=== PATIENT | male | born 1965 | race Caucasian/White ===

== ENCOUNTER 2020-09-16 21:14 | Inpatient (IN) | payer OTHER, SELFPAY ==
[~2020-09-16 21:14] MED LIST: Iopamidol-370 76% 500 ML 1 ML ONE
[2020-09-16 22:00] LABS: #Lymphocytes 1.1 thou/uL (1.20-3.40); #Monocytes 0.7 thou/uL (0.11-0.59); %Eosinophils 0.3 % (0.0-10.0); %Lymphocytes 9.1 % (21.0-51.0); %Monocytes 6.3 % (0.0-10.0); %Neutrophils 84.4 % (42.0-75.0); Hemoglobin 16.1 g/dL (14.0-18.0); Mean Corpuscular HGB CONC 33.1 g/dL (32.0-36.0); Mean Corpuscular Hemoglobin 30.8 pg (27.0-31.0); Mean Corpuscular Volume 92.8 fL (78.0-98.0); Mean Platelet Volume 10.1 fL (7.4-10.4); Platelet Count 138 thou/uL (130-400); RBC Distribution Width 12.7 % (11.5-14.5); Red Blood Cell (RBC) Count 5.23 mill/uL (4.70-6.10); White Blood Cell (WBC) Count 11.8 thou/uL (4.8-10.8)
[2020-09-16 22:03] LABS: INR-International Normal Ratio 1.2; PTT 30.6 sec (22.9-36.1); Prothrombin Time 15.3 sec (12.0-14.7)
[2020-09-16 22:07] LABS: ALT (SGPT) 105 U/L (8-55); AST (SGOT) 55 U/L (5-34); Albumin 3.8 g/dL (3.5-5.0); Alkaline Phosphatase 48 U/L (40-110); Anion Gap 17 mmol/L (10-20); BUN (Urea Nitrogen) 16 mg/dL (8.4-25.7); Bilirubin, Total 1.4 mg/dL (0.2-1.2); CK (CPK) 223 U/L (30-200); Calc. Creatinine Clearance 0 mL/min (70-130); Calcium 8.2 mg/dL (7.8-10.44); Carbon Dioxide 17 mmol/L (22-29); Chloride 106 mmol/L (98-107); Globulin 1.8 g/dL (2.4-3.5); Glucose 122 mg/dL (70-105); Potassium 4.6 mmol/L (3.5-5.1); Protein, Total 5.6 g/dL (6.0-8.3); Sodium 135 mmol/L (136-145)
[2020-09-16 23:02] LABS: SARS-CoV-2 NAA Rapid Test Not Detected (NotDetected)
[2020-09-16 23:18] LABS: Acetaminophen Less than 6.0 mcg/mL (10.0-30.0); Alcohol Less than 10 mg/dL (Less than 10); Salicylate Less than 8.0 mg/dL (15.0-30.0)
[2020-09-16] MEDS ORDERED: Labetalol HCl 100 MG/20 ML VIAL SLOW IVP PRN (23:38)
[2020-09-16] MEDS ORDERED: hydrALAZINE 20 MG/ML VIAL SLOW IVP PRN (23:38)
[2020-09-16] MEDS ORDERED: Aspirin 300 MG Suppository ONE (23:40)
[2020-09-16] MEDS ORDERED: Digoxin 0.5 MG/2 ML AMP ONE (23:40)
[2020-09-16] MEDS ORDERED: Sodium Chloride 0.9% 1,000 ML IV SCH (23:45)
[2020-09-16] MEDS ORDERED: Ondansetron ODT 4 MG TAB PO PRN (23:46)
[2020-09-16] MEDS ORDERED: Ondansetron PF 4 MG/2 ML Vial IVP PRN (23:46)
[2020-09-16] MEDS ORDERED: Bisacodyl 5 MG TAB PO PRN (23:46)
[2020-09-16] MEDS ORDERED: Acetaminophen 650 MG Suppository PR PRN (23:46)
[2020-09-16] MEDS ORDERED: Adacel (T-DAP) 0.5 ML SYRINGE IM ONE (23:50)
[2020-09-17] MEDS ORDERED: Magnesium 2 GM/50 ML 2 GM in Premix Bag 1 BAG IVPB SCH (01:15)
[2020-09-17] MEDS: Sodium Chloride 0.9% 1,000 ML IV SCH ×3 (02:58→23:51)
[2020-09-17 05:05] LABS: #Lymphocytes 1.1 thou/uL (1.20-3.40); #Monocytes 0.9 thou/uL (0.11-0.59); #Neutrophils 13.3 thou/uL (1.40-6.50); %Basophils 0.1 % (0.0-1.0); %Eosinophils 0.1 % (0.0-10.0); %Lymphocytes 7.2 % (21.0-51.0); %Monocytes 5.8 % (0.0-10.0); %Neutrophils 86.8 % (42.0-75.0); Mean Corpuscular HGB CONC 33.5 g/dL (32.0-36.0); Mean Corpuscular Volume 92.5 fL (78.0-98.0); Mean Platelet Volume 10.1 fL (7.4-10.4); Platelet Count 142 thou/uL (130-400); RBC Distribution Width 12.6 % (11.5-14.5); Red Blood Cell (RBC) Count 5.15 mill/uL (4.70-6.10); White Blood Cell (WBC) Count 15.3 thou/uL (4.8-10.8)
[2020-09-17 05:29] LABS: ALT (SGPT) 109 U/L (8-55); AST (SGOT) 56 U/L (5-34); Albumin 3.6 g/dL (3.5-5.0); Alkaline Phosphatase 50 U/L (40-110); Anion Gap 17 mmol/L (10-20); BUN (Urea Nitrogen) 13 mg/dL (8.4-25.7); Bilirubin, Direct 0.7 mg/dL (0.1-0.3); Bilirubin, Total 1.7 mg/dL (0.2-1.2); Calc. Creatinine Clearance 109 mL/min (70-130); Calcium 8.4 mg/dL (7.8-10.44); Carbon Dioxide 18 mmol/L (22-29); Chloride 107 mmol/L (98-107); Glucose 108 mg/dL (70-105); Potassium 4.5 mmol/L (3.5-5.1); Protein, Total 5.8 g/dL (6.0-8.3); Sodium 137 mmol/L (136-145)
[2020-09-17] MEDS ORDERED: Digoxin 0.5 MG/2 ML AMP SLOW IVP SCH (05:30)
[2020-09-17 05:34] LABS: Cardiac Risk 3.6 (Less than 4.5)
[2020-09-17] MEDS: Digoxin 0.5 MG/2 ML AMP SLOW IVP SCH ×3 (05:38→17:53)
[2020-09-17] MEDS ORDERED: Boostrix 0.5 ML (Tdap) VIAL IM ONE (06:00)
[2020-09-17 07:03] LABS: Bacteria/HPF None Seen HPF (None Seen); Bilirubin Negative (Negative); Blood, Urine Negative (Negative); Clarity Clear (Clear); Glucose, Urine (Dipstick) Normal (Negative); Ketone, Urine 60 mg/dL (Negative); Leukocyte Negative Leu/uL (Negative); Nitrite Negative (Negative); Protein, Urine (Dipstick) 10 mg/dL (Neg-Trace); RBC/HPF 0-3 HPF (0-3); Squamous Epithelial None Seen HPF (0-3); Urobilinogen Normal mg/dL (Less than 2); WBC/HPF 0-3 HPF (0-3)
[2020-09-17 07:06] LABS: Specific Gravity, Urine 1.057 (1.002-1.036)
[2020-09-17 07:21] LABS: Amphetamine Not Detected (NotDetected); Barbiturates Screen Not Detected (NotDetected); Benzodiazepine Screen Not Detected (NotDetected); Cocaine Metabolite Screen Not Detected (NotDetected); Medtox Control Line Valid? VALID (VALID); Medtox Reader # READER 4; Methadone Not Detected (NotDetected); Methamphetamine Not Detected (NotDetected); Opiate Screen Not Detected (NotDetected); Oxycodone Screen Not Detected (NotDetected); Phencyclidine (PCP) Not Detected (NotDetected); THC/Cannabinoid Screen Not Detected (NotDetected); Tricyclic Screen Not Detected (NotDetected)
[2020-09-17] MEDS ORDERED: Lorazepam 2 MG/ML VIAL SLOW IVP PRN (08:13)
[2020-09-17] MEDS ORDERED: Aspirin 300 MG Suppository PR SCH (09:00)
[2020-09-17] MEDS ORDERED: FLU VACC QS2020-21(6MOS UP)/PF 60 MCG/0.5 ML SYRINGE IM ONE (09:00)
[2020-09-17] MEDS: Famotidine 20 MG TAB PO SCH ×2 (11:12→20:31)
[2020-09-17] MEDS: Famotidine/PF 20 mg/2ml Vial SLOW IVP SCH ×2 (11:17→20:31)
[2020-09-17] MEDS ORDERED: Labetalol HCl 100 MG/20 ML VIAL SLOW IVP PRN (17:53)
[2020-09-17] MEDS: Bacitracin 1 PK TOP PRN (18:06)
[2020-09-17] MEDS: Atorvastatin Calcium 40 MG TAB PO SCH (20:31)
[2020-09-18 05:00] LABS: #Lymphocytes 1.1 thou/uL (1.20-3.40); #Monocytes 0.7 thou/uL (0.11-0.59); #Neutrophils 8.1 thou/uL (1.40-6.50); %Basophils 0.4 % (0.0-1.0); %Eosinophils 0.5 % (0.0-10.0); %Lymphocytes 11.4 % (21.0-51.0); %Monocytes 7.2 % (0.0-10.0); %Neutrophils 80.5 % (42.0-75.0); Hemoglobin 15.3 g/dL (14.0-18.0); Mean Corpuscular HGB CONC 33.3 g/dL (32.0-36.0); Mean Corpuscular Hemoglobin 30.9 pg (27.0-31.0); Mean Corpuscular Volume 92.6 fL (78.0-98.0); Mean Platelet Volume 9.6 fL (7.4-10.4); Platelet Count 132 thou/uL (130-400); RBC Distribution Width 12.3 % (11.5-14.5); Red Blood Cell (RBC) Count 4.97 mill/uL (4.70-6.10)
[2020-09-18 05:20] LABS: ALT (SGPT) 71 U/L (8-55); AST (SGOT) 29 U/L (5-34); Albumin 3.2 g/dL (3.5-5.0); Alkaline Phosphatase 43 U/L (40-110); Anion Gap 13 mmol/L (10-20); BUN (Urea Nitrogen) 11 mg/dL (8.4-25.7); Calc. Creatinine Clearance 114 mL/min (70-130); Calcium 8.1 mg/dL (7.8-10.44); Carbon Dioxide 22 mmol/L (22-29); Chloride 105 mmol/L (98-107); Glucose 79 mg/dL (70-105); Protein, Total 5.2 g/dL (6.0-8.3); Sodium 136 mmol/L (136-145)
[2020-09-18] MEDS ORDERED: Loratadine 10 MG TAB PO PRN (07:29)
[2020-09-18] MEDS ORDERED: Cepastat Lozenges 1 LOZ PO PRN (07:29)
[2020-09-18] MEDS ORDERED: Loperamide HCl 2 MG CAP PO PRN (07:29)
[2020-09-18] MEDS ORDERED: GUAIFENESIN SF SOLN 200 MG/10 ML UDCUP PO PRN (07:29)
[2020-09-18] MEDS ORDERED: Sodium Chloride 0.65% Nasal 44 ML BOT EA NARE PRN (07:29)
[2020-09-18] MEDS ORDERED: Calcium Carbonate 500 MG ChewTAB PO PRN (07:29)
[2020-09-18] MEDS ORDERED: Aspirin 300 MG Suppository PR SCH (09:00)
[2020-09-18] MEDS: Famotidine 20 MG TAB PO SCH ×2 (09:17→20:34)
[2020-09-18] MEDS: Famotidine/PF 20 mg/2ml Vial SLOW IVP SCH ×2 (09:18→20:34)
[2020-09-18] MEDS: Sodium Chloride 0.9% 1,000 ML IV SCH (11:30)
[2020-09-18] MEDS: Atorvastatin Calcium 40 MG TAB PO SCH (20:34)
[2020-09-18] MEDS ORDERED: Dextrose 5 %-0.45 % NaCl 1,000 ML IV SCH (21:15)
[2020-09-19] MEDS: Dextrose 10% in Water 1,000 ML IV SCH (01:42)
[2020-09-19] MEDS: Bacitracin 1 PK TOP PRN ×2 (05:22→15:30)
[2020-09-19] MEDS: Famotidine/PF 20 mg/2ml Vial SLOW IVP SCH ×2 (08:25→20:17)
[2020-09-19] MEDS: Famotidine 20 MG TAB PO SCH ×2 (09:48→20:17)
[2020-09-19] MEDS: Atorvastatin Calcium 40 MG TAB PO SCH (20:17)
[2020-09-20] MEDS: Dextrose 10% in Water 1,000 ML IV SCH ×2 (01:01→23:27)
[2020-09-20] MEDS: Famotidine 20 MG TAB PO SCH ×2 (08:50→20:38)
[2020-09-20] MEDS: Famotidine/PF 20 mg/2ml Vial SLOW IVP SCH ×2 (08:51→20:42)
[2020-09-20] MEDS: Carvedilol 3.125 MG TAB PO SCH (16:13)
[2020-09-20] MEDS: Atorvastatin Calcium 40 MG TAB PO SCH (20:38)
[2020-09-20] MEDS: hydrALAZINE 20 MG/ML VIAL SLOW IVP PRN (21:10)
[2020-09-21] MEDS: hydrALAZINE 20 MG/ML VIAL SLOW IVP PRN (04:47)
[2020-09-21 05:26] LABS: #Eosinphils 0.1 thou/uL (0.0-0.7); #Lymphocytes 1.4 thou/uL (1.20-3.40); #Monocytes 0.8 thou/uL (0.11-0.59); #Neutrophils 6.6 thou/uL (1.40-6.50); %Basophils 0.5 % (0.0-1.0); %Eosinophils 1.3 % (0.0-10.0); %Lymphocytes 15.3 % (21.0-51.0); %Monocytes 9.4 % (0.0-10.0); %Neutrophils 73.5 % (42.0-75.0); Hemoglobin 18.8 g/dL (14.0-18.0); Mean Corpuscular HGB CONC 33.9 g/dL (32.0-36.0); Mean Corpuscular Hemoglobin 30.6 pg (27.0-31.0); Mean Corpuscular Volume 90.3 fL (78.0-98.0); Mean Platelet Volume 8.9 fL (7.4-10.4); Platelet Count 170 thou/uL (130-400); RBC Distribution Width 12.6 % (11.5-14.5); Red Blood Cell (RBC) Count 6.15 mill/uL (4.70-6.10); White Blood Cell (WBC) Count 8.9 thou/uL (4.8-10.8)
[2020-09-21 05:57] LABS: ALT (SGPT) 35 U/L (8-55); AST (SGOT) 18 U/L (5-34); Albumin 3.3 g/dL (3.5-5.0); Alkaline Phosphatase 47 U/L (40-110); Anion Gap 14 mmol/L (10-20); BUN (Urea Nitrogen) 10 mg/dL (8.4-25.7); Calc. Creatinine Clearance 131 mL/min (70-130); Calcium 8.6 mg/dL (7.8-10.44); Carbon Dioxide 21 mmol/L (22-29); Chloride 104 mmol/L (98-107); Globulin 2.6 g/dL (2.4-3.5); Glucose 110 mg/dL (70-105); Magnesium 1.7 mg/dL (1.6-2.6); Potassium 3.5 mmol/L (3.5-5.1); Protein, Total 5.9 g/dL (6.0-8.3); Sodium 135 mmol/L (136-145)
[2020-09-21] MEDS ORDERED: Magnesium 2 GM/50 ML 2 GM in Premix Bag 1 BAG IVPB SCH (07:00)
[2020-09-21] MEDS: Famotidine/PF 20 mg/2ml Vial SLOW IVP SCH ×2 (09:34→20:36)
[2020-09-21] MEDS: Dextrose 10% in Water 1,000 ML IV SCH (09:35)
[2020-09-21] MEDS: Carvedilol 3.125 MG TAB PO SCH ×2 (09:39→16:10)
[2020-09-21] MEDS: Famotidine 20 MG TAB PO SCH ×2 (09:40→20:29)
[2020-09-21] MEDS: Dextrose 5 % And 0.9 % NaCl 1,000 ML IV SCH (14:34)
[2020-09-21] MEDS: Atorvastatin Calcium 40 MG TAB PO SCH (20:29)
[2020-09-22] MEDS: hydrALAZINE 20 MG/ML VIAL SLOW IVP PRN (01:00)
[2020-09-22] MEDS: Dextrose 5 % And 0.9 % NaCl 1,000 ML IV SCH ×2 (03:52→15:30)
[2020-09-22] MEDS ORDERED: Isoproterenol 0.2 MG/1 ML AMP ONE (06:19)
[2020-09-22] MEDS: Famotidine/PF 20 mg/2ml Vial SLOW IVP SCH ×2 (08:35→20:34)
[2020-09-22] MEDS: Carvedilol 3.125 MG TAB PO SCH ×2 (08:36→15:30)
[2020-09-22] MEDS: Lisinopril 2.5 MG TAB PO SCH (08:36)
[2020-09-22] MEDS: Famotidine 20 MG TAB PO SCH ×2 (08:36→21:31)
[2020-09-22] MEDS: D5W-AA 4.25% with LYTES 1,000 ML IV SCH (14:44)
[2020-09-22] MEDS: Atorvastatin Calcium 40 MG TAB PO SCH (21:31)
[2020-09-23] MEDS: D5W-AA 4.25% with LYTES 1,000 ML IV SCH (04:08)
[2020-09-23] MEDS: Carvedilol 3.125 MG TAB PO SCH ×2 (08:29→16:58)
[2020-09-23] MEDS ORDERED: PROPOFOL 200 MG/20 ML VIAL ONE (10:23)
[2020-09-23] MEDS ORDERED: Esmolol 100 MG/10 ML VIAL ONE (10:23)
[2020-09-23] MEDS ORDERED: Ondansetron HCl/PF 4 MG/2 ML Vial IVP PRN (11:06)
[2020-09-23] MEDS: Famotidine 20 MG TAB PO SCH (12:24)
[2020-09-23] MEDS: Lisinopril 2.5 MG TAB PO SCH (12:25)
[2020-09-23] MEDS: Famotidine/PF 20 mg/2ml Vial SLOW IVP SCH (12:59)
[2020-09-23] MEDS: Dextrose 10% in Water 250 ML IV SCH ×3 (13:01→23:43)
[2020-09-23] MEDS: Atorvastatin Calcium 40 MG TAB PO SCH (21:57)
[2020-09-23] MEDS: Pantoprazole 40 MG GRANULES PACKET PER TUBE SCH (21:57)
[2020-09-24] MEDS: Dextrose 10% in Water 250 ML IV SCH ×2 (07:37→12:04)
[2020-09-24] MEDS: Carvedilol 3.125 MG TAB PO SCH ×2 (10:24→16:02)
[2020-09-24] MEDS: Pantoprazole 40 MG GRANULES PACKET PER TUBE SCH ×2 (10:24→21:01)
[2020-09-24] MEDS: Lisinopril 2.5 MG TAB PO SCH (10:25)
[2020-09-24] MEDS ORDERED: Sodium Chloride 0.9% 500 ML IV SCH (16:15)
[2020-09-24] MEDS: Acetaminophen 325 MG TAB PO PRN (16:42)
[2020-09-24] MEDS: Atorvastatin Calcium 40 MG TAB PO SCH (21:01)
[2020-09-25] MEDS: Pantoprazole 40 MG GRANULES PACKET PER TUBE SCH ×2 (08:51→21:18)
[2020-09-25] MEDS: Carvedilol 3.125 MG TAB PO SCH ×2 (11:55→17:43)
[2020-09-25] MEDS: Lisinopril 2.5 MG TAB PO SCH (11:56)
[2020-09-25] MEDS ORDERED: Sodium Chloride 0.9% 250 ML IV SCH (12:30)
[2020-09-25] MEDS ORDERED: Digoxin 0.25 MG TAB PO SCH (14:45)
[2020-09-25] MEDS: Acetaminophen 325 MG TAB PO PRN (17:36)
[2020-09-25] MEDS: Senokot S 8.6-50 MG TAB PO PRN (17:36)
[2020-09-25] MEDS: Atorvastatin Calcium 40 MG TAB PO SCH (21:18)
[2020-09-26] MEDS: Digoxin 0.125 MG TAB PO SCH (08:48)
[2020-09-26] MEDS: Pantoprazole 40 MG GRANULES PACKET PER TUBE SCH ×2 (08:48→20:19)
[2020-09-26] MEDS: Carvedilol 3.125 MG TAB PO SCH ×2 (08:48→16:32)
[2020-09-26] MEDS ORDERED: Lisinopril 2.5 MG TAB PO SCH (09:00)
[2020-09-26] MEDS: Senokot S 8.6-50 MG TAB PO PRN (16:32)
[2020-09-26] MEDS: Atorvastatin Calcium 40 MG TAB PO SCH (20:20)
[2020-09-27 09:12] LABS: Anion Gap 13 mmol/L (10-20); BUN (Urea Nitrogen) 15 mg/dL (8.4-25.7); Calc. Creatinine Clearance 125 mL/min (70-130); Calcium 8.7 mg/dL (7.8-10.44); Carbon Dioxide 23 mmol/L (22-29); Chloride 104 mmol/L (98-107); Glucose 89 mg/dL (70-105); Potassium 4.5 mmol/L (3.5-5.1); Sodium 135 mmol/L (136-145)
[2020-09-27] MEDS: Carvedilol 3.125 MG TAB PO SCH ×2 (09:19→17:13)
[2020-09-27] MEDS: Digoxin 0.125 MG TAB PO SCH (09:19)
[2020-09-27] MEDS: Pantoprazole 40 MG GRANULES PACKET PER TUBE SCH ×2 (09:19→20:09)
[2020-09-27] MEDS ORDERED: Lorazepam 2 MG/ML VIAL SLOW IVP PRN (10:16)
[2020-09-27 10:28] LABS: #Basophils 0.1 thou/uL (0.0-0.2); #Eosinphils 0.2 thou/uL (0.0-0.7); #Lymphocytes 1.6 thou/uL (1.20-3.40); #Monocytes 0.7 thou/uL (0.11-0.59); #Neutrophils 6.7 thou/uL (1.40-6.50); %Basophils 0.6 % (0.0-1.0); %Eosinophils 1.7 % (0.0-10.0); %Lymphocytes 17.7 % (21.0-51.0); %Monocytes 7.2 % (0.0-10.0); %Neutrophils 72.8 % (42.0-75.0); Hemoglobin 17.7 g/dL (14.0-18.0); Mean Corpuscular HGB CONC 33.1 g/dL (32.0-36.0); Mean Corpuscular Hemoglobin 30.3 pg (27.0-31.0); Mean Corpuscular Volume 91.3 fL (78.0-98.0); Mean Platelet Volume 10.2 fL (7.4-10.4); Platelet Count 112 thou/uL (130-400); Platelet Morphology Comment Appears Decreased; RBC Distribution Width 12.6 % (11.5-14.5); RBC Morphology Normal; Red Blood Cell (RBC) Count 5.85 mill/uL (4.70-6.10); White Blood Cell (WBC) Count 9.3 thou/uL (4.8-10.8)
[2020-09-27] MEDS: Bacitracin 1 PK TOP PRN (17:27)
[2020-09-27 19:08] LABS: H. pylori IgA ABS Less than 9.0 units (0.0-8.9); H. pylori IgM ABS Less than 9.0 units (0.0-8.9)
[2020-09-27] MEDS: Atorvastatin Calcium 40 MG TAB PO SCH (20:09)
[2020-09-28] MEDS: Digoxin 0.125 MG TAB PO SCH (10:37)
[2020-09-28] MEDS: Pantoprazole 40 MG GRANULES PACKET PER TUBE SCH ×2 (10:37→22:00)
[2020-09-28] MEDS: Carvedilol 3.125 MG TAB PO SCH ×2 (11:38→17:25)
[2020-09-28] MEDS: Acetaminophen 325 MG TAB PO PRN (17:12)
[2020-09-28] MEDS: Atorvastatin Calcium 40 MG TAB PO SCH (22:00)
[2020-09-29] MEDS: Acetaminophen 650 MG/20.3 ML UDCUP PER TUBE PRN ×2 (03:45→16:45)
[2020-09-29 06:22] LABS: #Lymphocytes 0.5 thou/uL (1.20-3.40); #Monocytes 0.7 thou/uL (0.11-0.59); #Neutrophils 7.5 thou/uL (1.40-6.50); %Basophils 0.3 % (0.0-1.0); %Eosinophils 0.4 % (0.0-10.0); %Lymphocytes 6.1 % (21.0-51.0); %Neutrophils 85.2 % (42.0-75.0); Hemoglobin 16.6 g/dL (14.0-18.0); Mean Corpuscular HGB CONC 33.3 g/dL (32.0-36.0); Mean Corpuscular Hemoglobin 29.6 pg (27.0-31.0); Mean Corpuscular Volume 88.9 fL (78.0-98.0); Mean Platelet Volume 9.8 fL (7.4-10.4); Platelet Count 126 thou/uL (130-400); RBC Distribution Width 12.2 % (11.5-14.5); Red Blood Cell (RBC) Count 5.62 mill/uL (4.70-6.10); White Blood Cell (WBC) Count 8.7 thou/uL (4.8-10.8)
[2020-09-29 06:43] LABS: Anion Gap 13 mmol/L (10-20); BUN (Urea Nitrogen) 20 mg/dL (8.4-25.7); Calc. Creatinine Clearance 98 mL/min (70-130); Calcium 8.4 mg/dL (7.8-10.44); Carbon Dioxide 25 mmol/L (22-29); Chloride 102 mmol/L (98-107); Glucose 131 mg/dL (70-105); Magnesium 1.8 mg/dL (1.6-2.6); Potassium 4.5 mmol/L (3.5-5.1); Sodium 135 mmol/L (136-145)
[2020-09-29] MEDS: Pantoprazole 40 MG GRANULES PACKET PER TUBE SCH ×2 (08:46→22:37)
[2020-09-29] MEDS: Carvedilol 3.125 MG TAB PO SCH ×2 (08:46→16:46)
[2020-09-29] MEDS: Digoxin 0.125 MG TAB PO SCH (08:46)
[2020-09-29] MEDS ORDERED: Lorazepam 1 MG TAB PO PRN (17:59)
[2020-09-29] MEDS: Piperacillin/Tazobactam 3.375 GM in Sodium Chloride 0.9% 100 ML IVPB SCH ×2 (18:33→18:49)
[2020-09-29] MEDS ORDERED: Piperacillin/Tazobactam 3.375 GM VIAL ONE (18:42)
[2020-09-29] MEDS ORDERED: Lidocaine 1% w/Epinephrine 1:100K 20 ML VIAL ONE (20:09)
[2020-09-29] MEDS ORDERED: Bacitracin Zinc Ointment 30 gm TUBE ONE (20:09)
[2020-09-29] MEDS ORDERED: Lidocaine 0.5%/Epinephrine 1:200,000 50 ml Vial ONE (20:14)
[2020-09-29] MEDS: Atorvastatin Calcium 40 MG TAB PO SCH (22:37)
[2020-09-29] MEDS: Sodium Chloride 0.9% 250 ML 250 ML IV PRN (22:38)
[2020-09-30] MEDS: Piperacillin/Tazobactam 3.375 GM in Sodium Chloride 0.9% 100 ML IVPB SCH ×2 (03:50→09:53)
[2020-09-30] MEDS: Sodium Chloride 0.9% 250 ML 250 ML IV PRN (09:52)
[2020-09-30] MEDS: Carvedilol 3.125 MG TAB PO SCH ×2 (09:53→17:28)
[2020-09-30] MEDS: Digoxin 0.125 MG TAB PO SCH (09:53)
[2020-09-30] MEDS: Pantoprazole 40 MG GRANULES PACKET PER TUBE SCH ×2 (09:53→22:16)
[2020-09-30] MEDS ORDERED: Lidocaine 1% (PF) 30 ML VIAL ONE ×2 (11:09)
[2020-09-30] MEDS ORDERED: Iopamidol 370 76% 100 ML VIAL ONE (14:13)
[2020-09-30] MEDS ORDERED: Heparin 25,000 units/D5W 500 ML IVPB SCH (14:15)
[2020-09-30] MEDS ORDERED: Heparin 10,000 UNITS/ 10 ML VIAL SLOW IVP SCH (14:15)
[2020-09-30 14:51] LABS: Hemoglobin 16.8 g/dL (14.0-18.0); Platelet Count 123 thou/uL (130-400)
[2020-09-30] MEDS ORDERED: Iopamidol 370 76% 50 ML VIAL FS ONE (14:54)
[2020-09-30] MEDS: Atorvastatin Calcium 40 MG TAB PO SCH (22:16)
[2020-09-30] MEDS: Acetaminophen 650 MG/20.3 ML UDCUP PER TUBE PRN (22:18)
[2020-09-30] MEDS: Heparin 25,000 units/D5W 500 ML IV SCH (22:19)
[2020-10-01 03:33] LABS: Hemoglobin 15.9 g/dL (14.0-18.0); Mean Corpuscular HGB CONC 33.6 g/dL (32.0-36.0); Mean Corpuscular Hemoglobin 30.3 pg (27.0-31.0); Mean Corpuscular Volume 90.2 fL (78.0-98.0); Mean Platelet Volume 9.6 fL (7.4-10.4); Platelet Count 134 thou/uL (130-400); RBC Distribution Width 12.5 % (11.5-14.5); Red Blood Cell (RBC) Count 5.26 mill/uL (4.70-6.10); White Blood Cell (WBC) Count 11.1 thou/uL (4.8-10.8)
[2020-10-01 03:49] LABS: Anion Gap 11 mmol/L (10-20); BUN (Urea Nitrogen) 18 mg/dL (8.4-25.7); Calc. Creatinine Clearance 87 mL/min (70-130); Calcium 8.5 mg/dL (7.8-10.44); Carbon Dioxide 29 mmol/L (22-29); Chloride 99 mmol/L (98-107); Glucose 127 mg/dL (70-105); Potassium 4.4 mmol/L (3.5-5.1); Sodium 135 mmol/L (136-145)
[2020-10-01 04:25] LABS: Band 2 % (5-11); Lymphocytes 14 % (21-51); MDiff Complete? YES; Monocytes 19 % (0-10); Neutrophil 64 % (42-75); Reactive Lymphocytes 1 % (0-10)
[2020-10-01] MEDS: Carvedilol 3.125 MG TAB PO SCH ×2 (09:30→17:33)
[2020-10-01] MEDS: Digoxin 0.125 MG TAB PO SCH (09:30)
[2020-10-01] MEDS: Pantoprazole 40 MG GRANULES PACKET PER TUBE SCH ×2 (09:30→21:12)
[2020-10-01] MEDS: Heparin 25,000 units/D5W 500 ML IV SCH (12:41)
[2020-10-01] MEDS: Atorvastatin Calcium 40 MG TAB PO SCH (21:12)
[2020-10-02 04:30] LABS: PTT 143.6 sec (22.9-36.1)
[2020-10-02] MEDS: Digoxin 0.125 MG TAB PO SCH (09:57)
[2020-10-02] MEDS: Pantoprazole 40 MG GRANULES PACKET PER TUBE SCH ×2 (09:57→22:22)
[2020-10-02] MEDS: Carvedilol 3.125 MG TAB PO SCH ×2 (09:57→16:43)
[2020-10-02] MEDS: Heparin 25,000 units/D5W 500 ML IV SCH (09:58)
[2020-10-02 13:16] LABS: INR-International Normal Ratio 1.1; Prothrombin Time 14.4 sec (12.0-14.7)
[2020-10-02 15:00] LABS: Hemoglobin 16.3 g/dL (14.0-18.0); Platelet Count 154 thou/uL (130-400)
[2020-10-02] MEDS: Warfarin Sodium 5 MG TAB PO SCH (16:35)
[2020-10-02] MEDS: Atorvastatin Calcium 40 MG TAB PO SCH (22:22)
[2020-10-02] MEDS: Sodium Chloride 0.9% 250 ML 250 ML IV PRN (22:22)
[2020-10-03] MEDS: Heparin 25,000 units/D5W 500 ML IV SCH ×2 (04:01→22:54)
[2020-10-03 04:58] LABS: #Basophils 0.1 thou/uL (0.0-0.2); #Eosinphils 0.2 thou/uL (0.0-0.7); #Monocytes 1.1 thou/uL (0.11-0.59); #Neutrophils 5.4 thou/uL (1.40-6.50); %Lymphocytes 22.7 % (21.0-51.0); %Monocytes 12.3 % (0.0-10.0); Hemoglobin 15.1 g/dL (14.0-18.0); Mean Corpuscular HGB CONC 32.4 g/dL (32.0-36.0); Mean Corpuscular Hemoglobin 29.2 pg (27.0-31.0); Mean Corpuscular Volume 90.2 fL (78.0-98.0); Platelet Count 173 thou/uL (130-400); RBC Distribution Width 12.2 % (11.5-14.5); Red Blood Cell (RBC) Count 5.18 mill/uL (4.70-6.10); White Blood Cell (WBC) Count 8.7 thou/uL (4.8-10.8)
[2020-10-03 05:00] LABS: INR-International Normal Ratio 1.1; Prothrombin Time 14.2 sec (12.0-14.7)
[2020-10-03 06:50] LABS: Anion Gap 12 mmol/L (10-20); BUN (Urea Nitrogen) 17 mg/dL (8.4-25.7); Calc. Creatinine Clearance 112 mL/min (70-130); Calcium 8.7 mg/dL (7.8-10.44); Carbon Dioxide 27 mmol/L (22-29); Chloride 104 mmol/L (98-107); Glucose 102 mg/dL (70-105); Potassium 4.2 mmol/L (3.5-5.1); Sodium 139 mmol/L (136-145)
[2020-10-03] MEDS: Pantoprazole 40 MG GRANULES PACKET PER TUBE SCH ×2 (09:18→20:53)
[2020-10-03] MEDS: Carvedilol 3.125 MG TAB PO SCH ×2 (09:18→17:26)
[2020-10-03] MEDS: Digoxin 0.125 MG TAB PO SCH (09:18)
[2020-10-03] MEDS: Warfarin Sodium 5 MG TAB PO SCH (17:26)
[2020-10-03] MEDS: Atorvastatin Calcium 40 MG TAB PO SCH (20:53)
[2020-10-04 05:11] LABS: INR-International Normal Ratio 1.1; Prothrombin Time 14.8 sec (12.0-14.7)
[2020-10-04 05:12] LABS: PTT 87.6 sec (22.9-36.1)
[2020-10-04] MEDS: Carvedilol 3.125 MG TAB PO SCH ×2 (09:24→17:19)
[2020-10-04] MEDS: Pantoprazole 40 MG GRANULES PACKET PER TUBE SCH ×2 (09:26→21:33)
[2020-10-04] MEDS: Digoxin 0.125 MG TAB PO SCH (09:26)
[2020-10-04 14:25] LABS: Hemoglobin 16.3 g/dL (14.0-18.0); Platelet Count 120 thou/uL (130-400)
[2020-10-04] MEDS: Acetaminophen 650 MG/20.3 ML UDCUP PER TUBE PRN (17:17)
[2020-10-04] MEDS: Warfarin Sodium 5 MG TAB PO SCH (17:17)
[2020-10-04] MEDS: Heparin 25,000 units/D5W 500 ML IV SCH (17:26)
[2020-10-04] MEDS: Atorvastatin Calcium 40 MG TAB PO SCH (21:33)
[2020-10-05 07:56] LABS: #Basophils 0.1 thou/uL (0.0-0.2); #Eosinphils 0.1 thou/uL (0.0-0.7); #Lymphocytes 1.8 thou/uL (1.20-3.40); #Neutrophils 8.2 thou/uL (1.40-6.50); %Basophils 0.8 % (0.0-1.0); %Eosinophils 1.1 % (0.0-10.0); %Lymphocytes 15.8 % (21.0-51.0); %Monocytes 9.1 % (0.0-10.0); %Neutrophils 73.3 % (42.0-75.0); Mean Corpuscular HGB CONC 33.1 g/dL (32.0-36.0); Mean Corpuscular Hemoglobin 29.8 pg (27.0-31.0); Mean Corpuscular Volume 90.1 fL (78.0-98.0); Mean Platelet Volume 9.1 fL (7.4-10.4); Platelet Count 200 thou/uL (130-400); RBC Distribution Width 12.5 % (11.5-14.5); Red Blood Cell (RBC) Count 5.37 mill/uL (4.70-6.10); White Blood Cell (WBC) Count 11.2 thou/uL (4.8-10.8)
[2020-10-05 08:03] LABS: INR-International Normal Ratio 1.4; Prothrombin Time 17.3 sec (12.0-14.7)
[2020-10-05] MEDS: Carvedilol 3.125 MG TAB PO SCH ×2 (08:17→17:47)
[2020-10-05 08:20] LABS: Anion Gap 12 mmol/L (10-20); BUN (Urea Nitrogen) 13 mg/dL (8.4-25.7); Calc. Creatinine Clearance 107 mL/min (70-130); Calcium 8.6 mg/dL (7.8-10.44); Carbon Dioxide 29 mmol/L (22-29); Chloride 102 mmol/L (98-107); Glucose 104 mg/dL (70-105); Magnesium 1.8 mg/dL (1.6-2.6); Potassium 4.6 mmol/L (3.5-5.1); Sodium 138 mmol/L (136-145)
[2020-10-05] MEDS ORDERED: Sodium Chloride 0.9% 1,000 ML IV SCH (09:15)
[2020-10-05] MEDS: Digoxin 0.125 MG TAB PO SCH (10:27)
[2020-10-05] MEDS: Pantoprazole 40 MG GRANULES PACKET PER TUBE SCH ×2 (10:28→22:25)
[2020-10-05] MEDS: Acetaminophen/Codeine 30-300mg Tablet PER TUBE PRN (12:30)
[2020-10-05] MEDS: Heparin 25,000 units/D5W 500 ML IV SCH (12:32)
[2020-10-05] MEDS: Warfarin Sodium 7.5 MG TAB PO SCH (17:45)
[2020-10-05] MEDS ORDERED: Furosemide 40 MG/4 ML VIAL SLOW IVP SCH (19:15)
[2020-10-05] MEDS: Atorvastatin Calcium 40 MG TAB PO SCH (22:25)
[2020-10-06 05:08] LABS: INR-International Normal Ratio 1.7; Prothrombin Time 20.3 sec (12.0-14.7)
[2020-10-06 05:09] LABS: PTT 70.1 sec (22.9-36.1)
[2020-10-06] MEDS: Digoxin 0.125 MG TAB PO SCH (09:47)
[2020-10-06] MEDS: Pantoprazole 40 MG GRANULES PACKET PER TUBE SCH ×2 (09:47→20:48)
[2020-10-06] MEDS: Carvedilol 3.125 MG TAB PO SCH ×2 (09:51→17:08)
[2020-10-06] MEDS: Heparin 25,000 units/D5W 500 ML IV SCH (09:51)
[2020-10-06] MEDS ORDERED: predniSONE 20 MG TAB PO SCH (10:30)
[2020-10-06] MEDS: Acetaminophen/Codeine 30-300mg Tablet PER TUBE PRN (13:45)
[2020-10-06 14:23] LABS: Hemoglobin 15.3 g/dL (14.0-18.0); Platelet Count 212 thou/uL (130-400)
[2020-10-06] MEDS: Warfarin Sodium 7.5 MG TAB PO SCH (17:08)
[2020-10-06] MEDS: Colchicine 0.6 MG TAB PO SCH (20:48)
[2020-10-06] MEDS: Atorvastatin Calcium 40 MG TAB PO SCH (20:48)
[2020-10-07 05:10] LABS: INR-International Normal Ratio 2.2; PTT 53.3 sec (22.9-36.1)
[2020-10-07 05:30] LABS: Anion Gap 10 mmol/L (10-20); BUN (Urea Nitrogen) 16 mg/dL (8.4-25.7); Calc. Creatinine Clearance 120 mL/min (70-130); Calcium 9.4 mg/dL (7.8-10.44); Carbon Dioxide 31 mmol/L (22-29); Chloride 101 mmol/L (98-107); Glucose 111 mg/dL (70-105); Potassium 4.8 mmol/L (3.5-5.1); Sodium 137 mmol/L (136-145)
[2020-10-07] MEDS: Digoxin 0.125 MG TAB PO SCH (09:22)
[2020-10-07] MEDS: Pantoprazole 40 MG GRANULES PACKET PER TUBE SCH ×2 (09:23→21:13)
[2020-10-07] MEDS: Colchicine 0.6 MG TAB PO SCH ×2 (09:23→21:13)
[2020-10-07] MEDS: Carvedilol 3.125 MG TAB PO SCH ×2 (09:45→16:46)
[2020-10-07] MEDS: Warfarin Sodium 7.5 MG TAB PO SCH (16:46)
[2020-10-07] MEDS: Atorvastatin Calcium 40 MG TAB PO SCH (21:13)
[2020-10-08 05:46] LABS: INR-International Normal Ratio 2.7; Prothrombin Time 29.6 sec (12.0-14.7)
[2020-10-08 06:07] LABS: Anion Gap 12 mmol/L (10-20); BUN (Urea Nitrogen) 20 mg/dL (8.4-25.7); Calc. Creatinine Clearance 119 mL/min (70-130); Calcium 8.8 mg/dL (7.8-10.44); Carbon Dioxide 27 mmol/L (22-29); Chloride 105 mmol/L (98-107); Glucose 90 mg/dL (70-105); Magnesium 1.9 mg/dL (1.6-2.6); Potassium 4.7 mmol/L (3.5-5.1); Sodium 139 mmol/L (136-145)
[2020-10-08] MEDS: Pantoprazole 40 MG GRANULES PACKET PER TUBE SCH ×2 (09:41→21:37)
[2020-10-08] MEDS: Carvedilol 3.125 MG TAB PO SCH ×2 (09:42→16:52)
[2020-10-08] MEDS: Colchicine 0.6 MG TAB PO SCH ×2 (09:44→21:37)
[2020-10-08] MEDS: Digoxin 0.125 MG TAB PO SCH (09:46)
[2020-10-08] MEDS: Warfarin Sodium 7.5 MG TAB PO SCH (16:53)
[2020-10-08] MEDS: Atorvastatin Calcium 40 MG TAB PO SCH (21:38)
[2020-10-09 05:21] LABS: INR-International Normal Ratio 2.9; Prothrombin Time 31.2 sec (12.0-14.7)
[2020-10-09] MEDS: Pantoprazole 40 MG GRANULES PACKET PER TUBE SCH ×2 (09:55→21:59)
[2020-10-09] MEDS: Carvedilol 3.125 MG TAB PO SCH ×2 (09:55→16:58)
[2020-10-09] MEDS: Digoxin 0.125 MG TAB PO SCH (09:55)
[2020-10-09] MEDS: Bacitracin Zinc Ointment 30 gm TUBE TOP SCH (09:55)
[2020-10-09] MEDS: Colchicine 0.6 MG TAB PO SCH ×2 (09:55→21:59)
[2020-10-09] MEDS: Warfarin Sodium 5 MG TAB PO SCH (16:58)
[2020-10-09] MEDS: Atorvastatin Calcium 40 MG TAB PO SCH (21:59)
[2020-10-10 04:49] LABS: Hemoglobin 15.7 g/dL (14.0-18.0); Platelet Count 215 thou/uL (130-400)
[2020-10-10 05:04] LABS: INR-International Normal Ratio 2.9; Prothrombin Time 30.9 sec (12.0-14.7)
[2020-10-10] MEDS ORDERED: Sodium Chloride 0.9% 500 ML IV SCH (09:15)
[2020-10-10] MEDS: Colchicine 0.6 MG TAB PO SCH ×2 (09:53→22:15)
[2020-10-10] MEDS: Digoxin 0.125 MG TAB PO SCH (09:53)
[2020-10-10] MEDS: Carvedilol 3.125 MG TAB PO SCH ×2 (09:53→17:43)
[2020-10-10] MEDS: Bacitracin Zinc Ointment 30 gm TUBE TOP SCH (09:54)
[2020-10-10] MEDS: Pantoprazole 40 MG GRANULES PACKET PER TUBE SCH ×2 (09:54→22:15)
[2020-10-10] MEDS: Warfarin Sodium 5 MG TAB PO SCH (17:43)
[2020-10-10] MEDS: Atorvastatin Calcium 40 MG TAB PO SCH (22:15)
[2020-10-11 06:26] LABS: #Eosinphils 0.2 thou/uL (0.0-0.7); #Lymphocytes 1.9 thou/uL (1.20-3.40); #Monocytes 0.6 thou/uL (0.11-0.59); #Neutrophils 5.7 thou/uL (1.40-6.50); %Basophils 0.5 % (0.0-1.0); %Eosinophils 1.8 % (0.0-10.0); %Lymphocytes 23.1 % (21.0-51.0); %Monocytes 6.9 % (0.0-10.0); %Neutrophils 67.7 % (42.0-75.0); Hemoglobin 16.4 g/dL (14.0-18.0); Mean Corpuscular HGB CONC 33.6 g/dL (32.0-36.0); Mean Corpuscular Hemoglobin 30.2 pg (27.0-31.0); Mean Corpuscular Volume 89.7 fL (78.0-98.0); Mean Platelet Volume 9.4 fL (7.4-10.4); Platelet Count 191 thou/uL (130-400); RBC Distribution Width 12.9 % (11.5-14.5); Red Blood Cell (RBC) Count 5.43 mill/uL (4.70-6.10); White Blood Cell (WBC) Count 8.4 thou/uL (4.8-10.8)
[2020-10-11 06:28] LABS: INR-International Normal Ratio 2.7; Prothrombin Time 29.3 sec (12.0-14.7)
[2020-10-11 06:41] LABS: Anion Gap 12 mmol/L (10-20); BUN (Urea Nitrogen) 16 mg/dL (8.4-25.7); Calc. Creatinine Clearance 114 mL/min (70-130); Calcium 8.8 mg/dL (7.8-10.44); Carbon Dioxide 26 mmol/L (22-29); Chloride 104 mmol/L (98-107); Glucose 130 mg/dL (70-105); Potassium 4.2 mmol/L (3.5-5.1); Sodium 138 mmol/L (136-145)
[2020-10-11] MEDS ORDERED: Sodium Chloride 0.9% 1,000 ML IV SCH (09:15)
[2020-10-11] MEDS: Colchicine 0.6 MG TAB PO SCH ×2 (09:41→21:53)
[2020-10-11] MEDS: Pantoprazole 40 MG GRANULES PACKET PER TUBE SCH ×2 (09:41→21:52)
[2020-10-11] MEDS: Digoxin 0.125 MG TAB PO SCH (09:41)
[2020-10-11] MEDS: Carvedilol 3.125 MG TAB PO SCH ×2 (09:41→17:15)
[2020-10-11] MEDS: Bacitracin Zinc Ointment 30 gm TUBE TOP SCH (09:42)
[2020-10-11] MEDS: Warfarin Sodium 5 MG TAB PO SCH (17:14)
[2020-10-11] MEDS: Atorvastatin Calcium 40 MG TAB PO SCH (21:52)
[2020-10-12 05:00] LABS: #Eosinphils 0.2 thou/uL (0.0-0.7); #Lymphocytes 2.5 thou/uL (1.20-3.40); %Basophils 0.4 % (0.0-1.0); %Lymphocytes 28.8 % (21.0-51.0); %Neutrophils 57.9 % (42.0-75.0); Hemoglobin 15.9 g/dL (14.0-18.0); INR-International Normal Ratio 2.6; Mean Corpuscular HGB CONC 31.8 g/dL (32.0-36.0); Mean Corpuscular Hemoglobin 28.5 pg (27.0-31.0); Mean Corpuscular Volume 89.5 fL (78.0-98.0); Mean Platelet Volume 9.1 fL (7.4-10.4); Platelet Count 214 thou/uL (130-400); Prothrombin Time 28.1 sec (12.0-14.7); Red Blood Cell (RBC) Count 5.58 mill/uL (4.70-6.10); White Blood Cell (WBC) Count 8.7 thou/uL (4.8-10.8)
[2020-10-12 05:13] LABS: Anion Gap 14 mmol/L (10-20); BUN (Urea Nitrogen) 18 mg/dL (8.4-25.7); Calc. Creatinine Clearance 118 mL/min (70-130); Calcium 8.8 mg/dL (7.8-10.44); Carbon Dioxide 23 mmol/L (22-29); Chloride 103 mmol/L (98-107); Glucose 86 mg/dL (70-105); Potassium 4.3 mmol/L (3.5-5.1); Sodium 136 mmol/L (136-145)
[2020-10-12] MEDS: Carvedilol 3.125 MG TAB PO SCH ×2 (09:56→17:37)
[2020-10-12] MEDS: Pantoprazole 40 MG GRANULES PACKET PER TUBE SCH ×2 (09:56→21:27)
[2020-10-12] MEDS: Colchicine 0.6 MG TAB PO SCH ×2 (09:56→20:58)
[2020-10-12] MEDS: Digoxin 0.125 MG TAB PO SCH (09:56)
[2020-10-12] MEDS: Bacitracin Zinc Ointment 30 gm TUBE TOP SCH (09:57)
[2020-10-12] MEDS: Warfarin Sodium 5 MG TAB PO SCH (17:37)
[2020-10-12] MEDS: Atorvastatin Calcium 40 MG TAB PO SCH (21:28)
[2020-10-13 05:20] LABS: #Basophils 0.1 thou/uL (0.0-0.2); #Eosinphils 0.2 thou/uL (0.0-0.7); #Lymphocytes 2.2 thou/uL (1.20-3.40); #Monocytes 0.8 thou/uL (0.11-0.59); #Neutrophils 4.7 thou/uL (1.40-6.50); %Basophils 0.8 % (0.0-1.0); %Eosinophils 2.5 % (0.0-10.0); %Monocytes 10.2 % (0.0-10.0); %Neutrophils 58.5 % (42.0-75.0); Hemoglobin 16.6 g/dL (14.0-18.0); Mean Corpuscular Hemoglobin 29.5 pg (27.0-31.0); Mean Corpuscular Volume 89.4 fL (78.0-98.0); Mean Platelet Volume 9.3 fL (7.4-10.4); Platelet Count 175 thou/uL (130-400); Red Blood Cell (RBC) Count 5.63 mill/uL (4.70-6.10)
[2020-10-13 05:25] LABS: INR-International Normal Ratio 2.6; Prothrombin Time 28.4 sec (12.0-14.7)
[2020-10-13 05:46] LABS: Anion Gap 11 mmol/L (10-20); BUN (Urea Nitrogen) 17 mg/dL (8.4-25.7); Calc. Creatinine Clearance 119 mL/min (70-130); Calcium 8.8 mg/dL (7.8-10.44); Carbon Dioxide 27 mmol/L (22-29); Chloride 105 mmol/L (98-107); Glucose 90 mg/dL (70-105); Potassium 4.3 mmol/L (3.5-5.1); Sodium 139 mmol/L (136-145)
[2020-10-13] MEDS: Carvedilol 3.125 MG TAB PO SCH ×3 (09:28→16:35)
[2020-10-13] MEDS: Digoxin 0.125 MG TAB PO SCH (09:28)
[2020-10-13] MEDS: Pantoprazole 40 MG GRANULES PACKET PER TUBE SCH ×2 (09:28→22:22)
[2020-10-13] MEDS: Colchicine 0.6 MG TAB PO SCH ×2 (09:28→22:22)
[2020-10-13] MEDS: Bacitracin Zinc Ointment 30 gm TUBE TOP SCH ×3 (09:29→22:22)
[2020-10-13] MEDS: Warfarin Sodium 5 MG TAB PO SCH (16:30)
[2020-10-13] MEDS: Atorvastatin Calcium 40 MG TAB PO SCH (22:22)
[2020-10-14 05:17] LABS: #Eosinphils 0.2 thou/uL (0.0-0.7); #Lymphocytes 2.2 thou/uL (1.20-3.40); #Monocytes 0.8 thou/uL (0.11-0.59); #Neutrophils 4.6 thou/uL (1.40-6.50); %Basophils 0.6 % (0.0-1.0); %Eosinophils 2.2 % (0.0-10.0); %Monocytes 10.5 % (0.0-10.0); %Neutrophils 58.6 % (42.0-75.0); Hemoglobin 16.6 g/dL (14.0-18.0); Mean Corpuscular HGB CONC 32.5 g/dL (32.0-36.0); Mean Corpuscular Hemoglobin 29.4 pg (27.0-31.0); Mean Corpuscular Volume 90.3 fL (78.0-98.0); Mean Platelet Volume 9.5 fL (7.4-10.4); Platelet Count 187 thou/uL (130-400); RBC Distribution Width 13.1 % (11.5-14.5); Red Blood Cell (RBC) Count 5.67 mill/uL (4.70-6.10); White Blood Cell (WBC) Count 7.9 thou/uL (4.8-10.8)
[2020-10-14 05:20] LABS: INR-International Normal Ratio 2.6; Prothrombin Time 28.2 sec (12.0-14.7)
[2020-10-14 05:35] LABS: Anion Gap 11 mmol/L (10-20); BUN (Urea Nitrogen) 17 mg/dL (8.4-25.7); Calc. Creatinine Clearance 110 mL/min (70-130); Calcium 8.9 mg/dL (7.8-10.44); Carbon Dioxide 29 mmol/L (22-29); Chloride 102 mmol/L (98-107); Glucose 84 mg/dL (70-105); Potassium 4.2 mmol/L (3.5-5.1); Sodium 138 mmol/L (136-145)
[2020-10-14] MEDS: Colchicine 0.6 MG TAB PO SCH ×2 (10:03→21:17)
[2020-10-14] MEDS: Pantoprazole 40 MG GRANULES PACKET PER TUBE SCH ×2 (10:03→21:17)
[2020-10-14] MEDS: Digoxin 0.125 MG TAB PO SCH (10:04)
[2020-10-14] MEDS: Carvedilol 3.125 MG TAB PO SCH ×2 (10:15→17:20)
[2020-10-14 11:16] VITALS: BMI 25.8
[2020-10-14] MEDS: Warfarin Sodium 5 MG TAB PO SCH (17:20)
[2020-10-14] MEDS: Atorvastatin Calcium 40 MG TAB PO SCH (21:17)
[2020-10-15] MEDS: Colchicine 0.6 MG TAB PO SCH (08:43)
[2020-10-15] MEDS: Bacitracin Zinc Ointment 30 gm TUBE TOP SCH (08:43)
[2020-10-15] MEDS: Digoxin 0.125 MG TAB PO SCH (08:43)
[2020-10-15] MEDS: Carvedilol 3.125 MG TAB PO SCH (08:44)
[2020-10-15] MEDS: Pantoprazole 40 MG GRANULES PACKET PER TUBE SCH (08:44)
[2020-10-15 13:33] VITALS: BP 108/72; TEMP 98
== END 2020-10-15 14:58 | DRG 64 ==
LOC: ERS 21:14 → 2SE 22:58 → IMCU/EMU 09-17 00:04 → 2SE 10-02 16:07
PROVIDERS: ADMIT Internal Medicine; ATTEND Internal Medicine
PROC: 0DH63UZ Insertion of Feeding Device into Stomach, Percutaneous Approach (ICD-10-PCS; 2020-09-23)
PROC: 06H03DZ Insertion of Intraluminal Device into Inferior Vena Cava, Percutaneous Approach (ICD-10-PCS; principal; 2020-09-30)
PROC: B5191ZZ Fluoroscopy of Inferior Vena Cava using Low Osmolar Contrast (ICD-10-PCS; 2020-09-30)
DX: I63.512 Cerebral infarction due to unspecified occlusion or stenosis of left middle cerebral artery (principal); I61.9 Nontraumatic intracerebral hemorrhage, unspecified; Z20.822 Contact with and (suspected) exposure to COVID-19; I26.99 Other pulmonary embolism without acute cor pulmonale; G81.01 Flaccid hemiplegia affecting right dominant side; I42.0 Dilated cardiomyopathy; I50.42 Chronic combined systolic (congestive) and diastolic (congestive) heart failure; I47.1 Supraventricular tachycardia; R47.01 Aphasia; I48.0 Paroxysmal atrial fibrillation; S62.629A Displaced fracture of middle phalanx of unspecified finger, initial encounter for closed fracture; R74.8 Abnormal levels of other serum enzymes; R79.89 Other specified abnormal findings of blood chemistry; R29.726 NIHSS score 26; R47.1 Dysarthria and anarthria; I65.22 Occlusion and stenosis of left carotid artery; R13.12 Dysphagia, oropharyngeal phase; Z51.5 Encounter for palliative care; K25.9 Gastric ulcer, unspecified as acute or chronic, without hemorrhage or perforation; I11.0 Hypertensive heart disease with heart failure; M10.072 Idiopathic gout, left ankle and foot; M10.071 Idiopathic gout, right ankle and foot; Z87.891 Personal history of nicotine dependence
CPT/HCPCS: 0240U; 36415; 36416; 37191; 70450; 70496; 70498; 70551; 71045; 71275; 74230; 76942; 80048; 80053; 80061; 80076; 80306; 80307; 81001; 82550; 82607; 82746; 83735; 83880; 84443; 84484; 84550; 85014; 85018; 85025; 85049; 85379; 85610; 85730; 87040; 90715; 93005; 93010; 93306; 93970; 94760; 95712; 95819; 95957; 96374; C1880; J0360; J0690; J1160; J1644; J1940; J2001; J2060; J2405; J2543; J2704; J3475; J3490; J7050; J7512; Q9967; S0028

== ENCOUNTER 2021-05-20 13:42 | Outpatient (CLI) | payer MEDICAID | END 2021-05-20 13:43 | disposition home or self-care (01) | LOC: ULT 13:42 | PROVIDERS: ATTEND Family Medicine | DX: M79.671 Pain in right foot (principal) ==

== ENCOUNTER 2021-06-17 06:06 | Day surgery (SDC) | payer OTHER, SELFPAY ==
[2021-06-09 15:03] VITALS: BMI 24.3
[2021-06-17] MEDS ORDERED: Lidocaine 1% (PF) 30 ML VIAL ONE (06:35)
[2021-06-17] MEDS ORDERED: Gentamicin 80 MG/2 ML VIAL ONE (06:35)
[2021-06-17] MEDS ORDERED: CEFAZOLIN 1 GM VIAL ONE ×2 (06:35→08:57)
[2021-06-17] MEDS ORDERED: PROPOFOL 60 ML ONE (07:06)
[2021-06-17] MEDS ORDERED: Fentanyl 100 MCG/2 ML VIAL ONE ×2 (07:06→12:50)
[2021-06-17] MEDS ORDERED: ePHEDrine 50 MG/ML VIAL ONE (07:39)
[2021-06-17] MEDS ORDERED: PROPOFOL 200 MG/20 ML VIAL ONE (07:39)
[2021-06-17] MEDS ORDERED: PHENYLEPHRINE-NS 100 MCG/ML 10 ML SYRINGE ONE (07:39)
[2021-06-17] MEDS ORDERED: Acetaminophen/Codeine 30-300mg Tablet ONE (12:47)
== END 2021-06-17 14:00 | disposition home or self-care (01) ==
LOC: SDC 06:06
PROVIDERS: ATTEND Internal Medicine Cardiovascular Disease
PROC: 02HK3KZ Insertion of Defibrillator Lead into Right Ventricle, Percutaneous Approach (ICD-10-PCS; principal; 2021-06-17)
PROC: 0JH608Z Insertion of Defibrillator Generator into Chest Subcutaneous Tissue and Fascia, Open Approach (ICD-10-PCS; principal; 2021-06-17)
DX: I50.42 Chronic combined systolic (congestive) and diastolic (congestive) heart failure (principal); I47.2 Ventricular tachycardia; I48.19 Other persistent atrial fibrillation; I69.351 Hemiplegia and hemiparesis following cerebral infarction affecting right dominant side; I42.0 Dilated cardiomyopathy; I08.1 Rheumatic disorders of both mitral and tricuspid valves; M10.9 Gout, unspecified; Z86.711 Personal history of pulmonary embolism; Z87.891 Personal history of nicotine dependence; Z79.01 Long term (current) use of anticoagulants; Z79.82 Long term (current) use of aspirin; Z79.899 Other long term (current) drug therapy
CPT/HCPCS: 33262; 71045; 93005; C1777; C1786; J0690; J1580; J2001; J2704; J3010; J3490